=== PATIENT | female | born 1980 | race Caucasian/White ===

== ENCOUNTER 2019-07-19 04:41 | Inpatient (IN) | payer OTHER, SELFPAY ==
[2019-07-19] VITALS (12 sets, daily range): BP systolic 98–116; BP diastolic 61–69; PULSE 53–73; RESP 16; TEMP 36.7–36.8; O2SAT 100
[2019-07-19] MEDS: OXYTOCIN 30 UNITS/NS 500 ML 30 UNITS/500 ML BAG 999 UNITS (02:34)
[2019-07-19 05:07] LABS: Basophils Percent Auto 0.2 % (0.2-1.2); Eosinophils Absolute Auto 0.1 K/mm3 (0-0.3); Eosinophils Percent Auto 0.6 % (0-4.4); Hemoglobin 11.9 g/dL (12.0-15.0); Immature Granulocyte Absolute 0.09 K/mm3 (0.00-0.031); Immature Granulocyte Percent A 1.1 % (0-0.5); Lymphocytes Absolute Auto 2.01 K/mm3 (0.9-3.2); Lymphocytes Percent Auto 24.2 % (18.3-44.2); Mean Corpuscular HGB Conc 33.1 g/dl (32-36); Mean Corpuscular Hemoglobin 32.2 pg (26-34); Mean Corpuscular Volume 97.6 fl (80-100); Mean Platelet Volume 9.8 fl (7.4-10.4); Monocytes Absolute Auto 0.6 K/mm3 (0.1-0.6); Monocytes Percent Auto 7.6 % (2.6-8.5); Neutrophils Absolute Auto 5.5 K/mm3 (1.3-6.7); Neutrophils Percent Auto 66.3 % (45.5-73.1); Platelet Count Result 163 k/mm3 (150-375); Red Blood Count 3.69 M/mm3 (4.2-5.4); Red Cell Distribution Width 12.7 % (11.5-14.5); White Blood Count 8.3 K/mm3 (4.5-10.0)
--- NOTE | 2019-07-19 05:48 | WPDOBADMIT ---
Obstetrics - Admit Note Admission Note: record reviewed. Additions to the history and/or subsequent changes in the physical findings follow. 38 y/o at 39 4/7 weeks here with contractions. GBS neg. complicated by hypothyroidism, stable. Had complete dilation on arrival. AVSS NST reactive TOCO: contractions every 2-3 min ABD soft, nontender, gravid, vertex EXT nontender Cervix C/+2 A: Labor at term. P: See delivery note.
--- NOTE | 2019-07-19 05:51 | P.DS_ITS ---
DS: Diagnosis Discharge Diagnosis (1) (normal spontaneous vaginal delivery): Code(s): O80 - Encounter for full-term uncomplicated delivery Status: Acute OB - DS: Summary OB Procedures : None OB Procedures Intrapartum: Spontaneous Vag Delivery OB Procedures: : None Time Spent with Patient Time attestation: Total time spent providing and/or coordinating discharge services: DS: Data Data Completed and Pending Labs on day of discharge: Labs from last 24 hours 07/19/19 07/19/19 04:55 04:55 WBC 8.3 RBC 3.69 L Hgb 11.9 L Hct 36.0 L MCV 97.6 MCH 32.2 MCHC 33.1 RDW 12.7 Plt Count 163 MPV 9.8 Immature Gran % (Auto) 1.1 H Neut % (Auto) 66.3 Lymph % (Auto) 24.2 Garrard % (Auto) 7.6 Eos % (Auto) 0.6 Baso % (Auto) 0.2 Lymph # (Auto) 2.01 Garrard # (Auto) 0.6 Eos # (Auto) 0.1 Baso # (Auto) 0.0 Abs Immat Gran (auto) 0.09 H Absolute Neuts (auto) 5.5 Absolute Nucleated RBC 0.0 Nucleated RBC % 0.0 RPR Pending Discharge Plan Discharge Attending physician on discharge: John Laguna Discharging Clinician: John Laguna Patient Disposition: Home, Self-Care Activity: pelvic rest Diet: regular Discharge Instructions: Call or return if temperature above 100.4? F, increased abdominal pain, increased vaginal bleeding or any new problems. Stand Alone Forms: General Discharge Information Follow-up/Referrals: John Laguna MD [Physician] - (6 weeks) Discharge Medications: New ibuprofen 600 mg tablet 600 mg PO Q6H PRN (Reason: cramps) Qty: 30 RF: 0 No Action levothyroxine [Synthroid] 137 mcg Tablet 137 mcg PO DAILY RF: 0 docusate sodium [Colace] 100 mg Capsule 100 mg PO DAILY RF: 0 polyethylene glycol 3350 [Miralax] 17 gram/dose Powder 17 g PO DAILY RF: 0 PNV cmb#95-ferrous fumarate-FA [] 28 mg iron- 800 mcg Tablet 1 tablet PO DAILY RF: 0 Date of admission: 07/19/19 04:41 Primary Care Provider: Laura,Rohini Admitting Provider: John Laguna Attending physician on admission: John Laguna
--- NOTE | 2019-07-19 05:54 | PM.OBPRVD ---
OB - Delivery Note Procedure Delivery date: 07/19/19 Procedure: Specimen: Yes (cord blood) Estimated blood loss (mL): 80 Anesthesia type: None Disposition: PACU Complications: None Narrative: 38 y/o at 39 3/7 weeks gestation who presented to the hospital with complaint of contractions. Cervix was completely dilated on arrival. Amniotomy was performed with return of clear fluid. She pushed with good effort and delivered the 's head to the perineum, followed by the body. The nose and mouth were bulb suctioned. After a delay, the cord was clamped and cut. The infant was handed off the field. Cord blood was collected. The placenta delivered spontaneously and was grossly normal in appearance. The usual 3 vessel cord was noted. Shallow bilateral periurethral lacerations were sustained which were not bleeding and did not require repair. Needle and instrument counts were correct. The patient was taken to recovery room in stable condition. The went to the nursery in stable condition. I was present and scrubbed for the entire delivery. Baby Date of : 07/19/19 Time of : 05:27 Weeks of gestation at delivery: 39 gender: Male Weight (pounds): 8 Weight (ounces): 10 presentation: vertex position: Left Occiput Transverse Placenta delivery description: Spontaneous and Normal Configuration cord vessel description: 3 Vessels score one minute: 8 score five minutes: 9
[2019-07-19] MEDS: IBUPROFEN 600 MG TABLET PO ×3 (05:58→20:02)
[2019-07-19] MEDS: BENZOCAINE 20% AER SPR (*SP) 56 GM CAN 1 SPRAY TOPICAL (06:00)
[2019-07-19] MEDS: WITCH HAZEL 40 PADS 1 PAD TOPICAL (06:00)
[2019-07-19 07:47] LABS: Rapid Plasma Reagin Non-Reactive (NonReactive)
--- NOTE | 2019-07-19 08:15 | OBPPTRN ---
Patient ambulated to post room #283. Support person present. Oriented to unit, room, information board, rooming in, admission packet and security measures. Patient verbalizes understanding.
--- NOTE | 2019-07-19 13:30 | PC.NURSE ---
Consult with pt., mother is able to independently latch infant with appropriate positioning/alignment. She reports slight nipple discomfort, is feeding as required and waking to feed if needed. is currently meeting outcomes for weight, output, jaundice and feeding frequencies. Reviewed infant feeding cues, frequencies, duration of feedings, feeding elimination flow sheet, and signs of adequate intake. Mother is feeding as required and waking to feed if needed. is currently meeting outcomes for weight, output, jaundice and feeding frequencies. Mother states she feels confident to continue effective at home. Reviewed transition to breast milk, signs of adequate intake, and engorgement/relief. Instructed to call ICP if intake/output less than required. Reviewed regular medications mother is taking. Information provided per Devorah. Reviewed community resources on the [facility] website and in the Mom[facility]Baby guide. Information on outpatient services provided. Mother has no further questions at this time.
[2019-07-20] MEDS: IBUPROFEN 600 MG TABLET PO ×2 (05:07→11:26)
[2019-07-20 05:53] LABS: Hematocrit 31.7 % (37.0-47.0); Hemoglobin 10.5 g/dL (12.0-15.0)
[2019-07-20 09:00] VITALS: BP 98/57; PULSE 69; RESP 18; TEMP 36.9
[2019-07-20] MEDS: DOCUSATE SODIUM 100 MG CAPSULE PO (09:15)
[2019-07-20] MEDS: LANOLIN (LANSINOH) 7.5 GM CREAM 1 APPLIC TOPICAL (09:16)
--- NOTE | 2019-07-20 11:17 | PM.OBPNVD ---
OB - PN: Subj Subjective Date/time seen: 07/20/19 11:17 Narrative: Pain OK. Would like circumcision for son. Wants to go home today. OB - PN: Obj Data Labs CBC & Chem 7: 07/20/19 05:11 Labs: Laboratory Results - last 24 hr 07/20/19 05:11 Hgb 10.5 L Hct 31.7 L OB - PN A/P Plan Comments: A: PPD#1, doing well. P: Routine care. Exam Psych: Other: AVSS ABD soft, nontender, fundus firm EXT nontender
[2019-07-22 08:26] VITALS: BP 109/68; PULSE 63; RESP 18; TEMP 36.7
== END 2019-07-20 16:07 | disposition home or self-care (01) | DRG 807 ==
LOC: ANHLDR 05:53 → ANHOB2 08:27
PROVIDERS: Admitting Provider Obstetrics & Gynecology; PCP Registered Nurse; Visit Provider Obstetrics & Gynecology
DX: O99.284 Endocrine, nutritional and metabolic diseases complicating childbirth (principal); Z37.0 Single live birth; Z3A.39 39 weeks gestation of pregnancy; O71.82 Other specified trauma to perineum and vulva; O64.0XX0 Obstructed labor due to incomplete rotation of fetal head, not applicable or unspecified
CPT/HCPCS: 36415; 85014; 85018; 85025; 86592; 86850; 86900; 86901; A9270; J2590